=== PATIENT | female | born 1965 | race Caucasian/White ===

== ENCOUNTER 2017-10-21 20:32 | Emergency (ER) | payer OTHER ==
[2017-10-21] MEDS ORDERED: Pepcid 20 MG VIAL IV ONE ×2 (21:36→21:51)
[2017-10-21] MEDS ORDERED: TORAdol 30 mg Injection IV ONE (21:36)
[2017-10-21] MEDS ORDERED: Zofran 4 MG/2 ML VIAL IV ONE (21:36)
[2017-10-21] MEDS ORDERED: Sodium Chloride 0.9% 1000 ML 1,000 ML IV STA (21:36)
--- NOTE | 2017-10-21 21:40 | ERPHSYRPT ---
- History of Present Illness Time Seen by Provider: 10/21/17 21:32 Historian: patient Exam Limitations: no limitations Patient Subjective Stated Complaint: pt states she has beenhaving abd pain for approx 2 weeks. states pain is nincreasing and has new pain in lower back. pt states she has been having diarrhea for 2 weeks also Triage Nursing Assessment: pt alert and oriented, answers questions approp. pt ambulatory with steady gait ntoed, respirations nonlabored with lungs cta. abd soft, pt sttes bloeated. bowel sounds present, hypo. no stool at this time. Physician History: C/o diffuse abdominal pain, cramps, nausea and diarrhea for 2 weeks. She denies bloody or black diarrhea, no fever, chills, other complaints. Timing/Duration: week(s) (2) Quality: cramping Abdominal Pain Onset Location: generalized abdomen Pain Radiation: no radiation Severity of Pain-Max: severe Severity of Pain-Current: severe Modifying Factors: Improves With: nothing Associated Symptoms: diarrhea, loss of appetite, nausea Previous symptoms: no prior history Allergies/Adverse Reactions: No Known Drug Allergies Allergy (Verified 10/21/17 21:37) Home Medications: No Reportable Medications [No Reported Medications] 10/21/17 [History] Hx Tetanus, Diphtheria Vaccination/Date Given: Yes Hx Influenza Vaccination/Date Given: No Hx Pneumococcal Vaccination/Date Given: No Immunizations Up to Date: Yes - Review of Systems Constitutional: No Symptoms Abdominal/Gastrointestinal: Abdominal Pain, Nausea, Diarrhea All Other Systems: Reviewed and Negative - Past Medical History Pertinent Past Medical History: Yes Neurological History: No Pertinent History ENT History: No Pertinent History Cardiac History: High Cholesterol, Hypertension Respiratory History: Pneumonia Endocrine Medical History: No Pertinent History Musculoskeletal History: No Pertinent History GI Medical History: No Pertinent History History: No Pertinent History Psycho-Social History: No Pertinent History Female Reproductive Disorders: No Pertinent History 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 - Past Surgical History Past Surgical History: Yes Neuro Surgical History: No Pertinent History Cardiac: No Pertinent History Respiratory: No Pertinent History Gastrointestinal: Appendectomy, Other Genitourinary: No Pertinent History Musculoskeletal: No Pertinent History Female Surgical History: Section, Tubal Ligation Other Surgical History: BARIATRIC SURGERY - Social History Smoking Status: Current every day smoker How long have you smoked: 20 years Exposure to second hand smoke: Yes Drug Use: none Patient Lives Alone: No - Female History Hx Last Menstrual Period: last week Hx Now: No (irregular) - Nursing Vital Signs Nursing Vital Signs: Initial Vital Signs Temperature 98.4 F 10/21/17 21:23 Pulse Rate 95 H 10/21/17 21:23 Respiratory Rate 20 10/21/17 21:23 Blood Pressure 142/84 10/21/17 21:23 O2 Sat by Pulse Oximetry 98 10/21/17 21:23 Pain Scale Pain Intensity 6 - Physical Exam SpO2: 98 Oxygen Delivery: Room Air - Course Nursing assessment & vital signs reviewed: Yes - CT Exams Abdomen/Pelvis CT Interpretation: Tele-radiologist Report, Other (7.4x6.6 cm well demarcated collection with possibvle peripheral enhancement, located anterior to the rectum , diff; dg: ascess, ovarian cyst or endometrioma.) Ordered Tests: Active Orders 24 hr Category Date Time Status IV Insertion STAT Care 10/21/17 21:36 Active ABDOMEN AND PELVIS W CONTRAST [CT] Stat Exams 10/21/17 21:36 Taken AMYLASE Stat Lab 10/21/17 21:48 Completed CBC W DIFF Stat Lab 10/21/17 21:48 Completed CMP Stat Lab 10/21/17 21:48 Completed CULTURE,URINE Stat Lab 10/21/17 21:49 Received HCG,QUALITATIVE URINE Stat Lab 10/21/17 21:49 Completed LIPASE Stat Lab 10/21/17 21:48 Completed Lactic Acid Stat Lab 10/21/17 21:48 Completed Manual Differential NC Stat Lab 10/21/17 21:48 Completed UA W/ MICROSCOPIC Stat Lab 10/21/17 21:49 Completed Medication Summary Discontinued Medications Generic Name Dose Route Start Last Admin Trade Name Freq PRN Reason Stop Dose Admin Famotidine 20 mg 10/21/17 21:36 10/21/17 21:55 Pepcid 20 Mg Vial IV 10/21/17 21:37 20 mg STAT ONE Administration Famotidine Confirm 10/21/17 21:51 Pepcid 20 Mg Vial Administered 10/21/17 21:52 Dose 20 mg IV .STK-MED ONE Sodium Chloride 1,000 mls @ 999 mls/hr 10/21/17 21:36 10/21/17 21:56 Sodium Chloride 0.9% 1000 Ml IV 10/21/17 22:36 999 mls/hr .Q1H1M STA Administration Sodium Chloride Confirm 10/21/17 21:51 Sodium Chloride 0.9% 1000 Ml Administered 10/21/17 21:52 Dose 1,000 mls @ ud .ROUTE .STK-MED ONE Ceftriaxone Sodium/Dextrose 1 g in 50 mls @ 100 mls/hr 10/22/17 00:44 01:34 Rocephin 1 Gm-D5w 50 Ml Bag IV 10/22/17 01:13 100 ml/hr STAT STA 100 mls/hr Administration Ceftriaxone Sodium/Dextrose Confirm 10/22/17 01:04 Rocephin 1 Gm-D5w 50 Ml Bag Administered 10/22/17 01:05 Dose 1 g in 50 mls @ ud IV .STK-MED ONE Ketorolac Tromethamine 30 mg 10/21/17 21:36 10/21/17 21:56 Toradol 30 Mg Injection IV 10/21/17 21:37 30 mg STAT ONE Administration Ketorolac Tromethamine Confirm 10/21/17 21:50 Toradol 30 Mg Injection Administered 10/21/17 21:51 Dose 30 mg .ROUTE .STK-MED ONE Ondansetron HCl 4 mg 10/21/17 21:36 10/21/17 21:55 Zofran 4 Mg/2 Ml Vial IV 10/21/17 21:37 4 mg STAT ONE Administration Ondansetron HCl Confirm 10/21/17 21:50 Zofran 4 Mg/2 Ml Vial Administered 10/21/17 21:51 Dose 4 mg .ROUTE .STK-MED ONE Lab/Rad Data: Laboratory Result Diagrams 10/21/17 21:48 10/21/17 21:48 Laboratory Results 10/21/17 10/21/17 10/21/17 Range/Units 21:49 21:49 21:48 WBC (4.0-10.5) K/mm3 RBC (4.1-5.4) M/mm3 Hgb (12.0-16.0) gm/dl Hct (35-47) % MCV (78-100) fl MCH (26-32) pg MCHC (32-36) g/dl RDW (11.5-14.0) % Plt Count (150-450) K/mm3 MPV (6-9.5) fl Absolute Granulocytes (1.4-6.9) Segmented Neutrophils (36.0-66.0) % Band Neutrophils (0.0-2.0) % Lymphocytes (Manual) (24-44) % Monocytes (Manual) (0.0-12.0) % Metamyelocytes % Platelet Estimate (NORMAL) RBC Morphology Sodium 140 (137-145) mmol/L Potassium 3.5 (3.5-5.1) mmol/L Chloride 106 (98-107) mmol/L Carbon Dioxide 24 (22-30) mmol/L Anion Gap 13.7 (5-15) MEQ/L BUN 13 (7-17) mg/dL Creatinine 0.68 (0.52-1.04) mg/dL Estimated GFR > 60.0 ML/MIN Glucose 125 H (74-106) mg/dL Lactic Acid (0.4-2.0) Calcium 8.9 (8.4-10.2) mg/dL Total Bilirubin 0.70 (0.2-1.3) mg/dL AST 12 L (14-36) U/L ALT 14 (0-35) U/L Alkaline Phosphatase 151 H (38-126) U/L Serum Total Protein 7.1 (6.3-8.2) g/dL Albumin 3.6 (3.5-5.0) g/dL Amylase < 30 L (30-110) U/L Lipase 30 (23-300) U/L Ur Collection Type VOID Urine Color DARK YELLOW (YELLOW) Urine Appearance CLOUDY (CLEAR) Urine pH 5.0 (5-6) Ur Specific [place] 1.020 (1.005-1.025) Urine Protein 30 (Negative) Urine Ketones SMALL (NEGATIVE) Urine Blood 250 (0-5) Byron/ul Urine Nitrite NEGATIVE (NEGATIVE) Urine Bilirubin ++ (NEGATIVE) Urine Urobilinogen 4 (0-1) mg/dL Ur Leukocyte Esterase 1+ (NEGATIVE) Urine Microscopic RBC 50-100 (0-2) /HPF Urine Microscopic WBC 2-5 (0-5) /HPF Ur Epithelial Cells RARE (FEW) /HPF Urine Bacteria MODERATE (NEGATIVE) /HPF Urine Culture Reflexed YES (NO) Urine Glucose NEGATIVE (NEGATIVE) mg/dL Urine HCG, Qual NEGATIVE (Negative) Specimen Received 10/21 214910/21/1718 Range/Units 21:48 21:48 WBC 19.4 H (4.0-10.5) K/mm3 RBC 4.61 (4.1-5.4) M/mm3 Hgb 11.4 L (12.0-16.0) gm/dl Hct 35.6 (35-47) % MCV 77.2 L (78-100) fl MCH 24.7 L (26-32) pg MCHC 32.0 (32-36) g/dl RDW 18.7 H (11.5-14.0) % Plt Count 332 (150-450) K/mm3 MPV 9.2 (6-9.5) fl Absolute Granulocytes 16.45 H (1.4-6.9) Segmented Neutrophils 86 H (36.0-66.0) % Band Neutrophils 3 H (0.0-2.0) % Lymphocytes (Manual) 4 L (24-44) % Monocytes (Manual) 6 (0.0-12.0) % Metamyelocytes 1 % Platelet Estimate NORMAL (NORMAL) RBC Morphology NORMAL Sodium (137-145) mmol/L Potassium (3.5-5.1) mmol/L Chloride (98-107) mmol/L Carbon Dioxide (22-30) mmol/L Anion Gap (5-15) MEQ/L BUN (7-17) mg/dL Creatinine (0.52-1.04) mg/dL Estimated GFR ML/MIN Glucose (74-106) mg/dL Lactic Acid 0.8 (0.4-2.0) Calcium (8.4-10.2) mg/dL Total Bilirubin (0.2-1.3) mg/dL AST (14-36) U/L ALT (0-35) U/L Alkaline Phosphatase (38-126) U/L Serum Total Protein (6.3-8.2) g/dL Albumin (3.5-5.0) g/dL Amylase (30-110) U/L Lipase (23-300) U/L Ur Collection Type Urine Color (YELLOW) Urine Appearance (CLEAR) Urine pH (5-6) Ur Specific [place] (1.005-1.025) Urine Protein (Negative) Urine Ketones (NEGATIVE) Urine Blood (0-5) Byron/ul Urine Nitrite (NEGATIVE) Urine Bilirubin (NEGATIVE) Urine Urobilinogen (0-1) mg/dL Ur Leukocyte Esterase (NEGATIVE) Urine Microscopic RBC (0-2) /HPF Urine Microscopic WBC (0-5) /HPF Ur Epithelial Cells (FEW) /HPF Urine Bacteria (NEGATIVE) /HPF Urine Culture Reflexed (NO) Urine Glucose (NEGATIVE) mg/dL Urine HCG, Qual (Negative) Specimen Received - Progress Progress: improved Progress Note: 10/22/17 02:[address] Bonilla in [facility] ED in [facility], also Dr Monroe Try On Baster, discussed our findings and this patients current condition, they accepted patient to be transferred there for further exams and treatment. patient and her were informed, they agreed. She has been stable and afebrile, she will be transported in family car. - Departure Time of Disposition: 02:46 Departure Disposition: Transfer ([facility] ED, [facility]) Clinical Impression: Pelvic mass Condition: Stable Critical Care Time: No Referrals: GAMALIEL RUBIO [Primary Care Provider] -
[2017-10-21] MEDS ORDERED: Zofran 4 MG/2 ML VIAL ONE (21:50)
[2017-10-21] MEDS ORDERED: TORAdol 30 mg Injection ONE (21:50)
[2017-10-21] MEDS ORDERED: Sodium Chloride 0.9% 1000 ML 1,000 ML ONE (21:51)
[2017-10-21 21:52] LABS: Granulocyte Absolute (ANC) 16.45 (1.4-6.9); Hematocrit 35.6 % (35-47); Hemoglobin 11.4 gm/dl (12.0-16.0); Mean Cell Volume 77.2 fl (78-100); Mean Corpuscular Hemoglobin 24.7 pg (26-32); Mean Platelet Volume 9.2 fl (6-9.5); Platelet Count 332 K/mm3 (150-450); Red Blood Count 4.61 M/mm3 (4.1-5.4); Red Cell Distribution Width 18.7 % (11.5-14.0); White Blood Count 19.4 K/mm3 (4.0-10.5)
[2017-10-21 22:08] LABS: ALBUMIN 3.6 g/dL (3.5-5.0); ALKALINE PHOSPHATASE 151 U/L (38-126); AMYLASE < 30 U/L (30-110); ANION GAP 13.7 MEQ/L (5-15); BLOOD UREA NITROGEN 13 mg/dL (7-17); CHLORIDE 106 mmol/L (98-107); Calcium 8.9 mg/dL (8.4-10.2); Carbon Dioxide 24 mmol/L (22-30); Creatinine 1 0.68 mg/dL (0.52-1.04); Glucose 125 mg/dL (74-106); LIPASE 30 U/L (23-300); Potassium 3.5 mmol/L (3.5-5.1); SGOT/AST 12 U/L (14-36); SGPT/ALT 14 U/L (0-35); SODIUM 140 mmol/L (137-145); Total Protein 7.1 g/dL (6.3-8.2)
[2017-10-21 22:10] LABS: Appearance CLOUDY (CLEAR)
[2017-10-21 22:11] LABS: Blood 250 Ery/ul (0-5); Glucose NEGATIVE (NEGATIVE); Ketones SMALL (NEGATIVE); Leukocyte Esterase 1+ (NEGATIVE); Nitrite NEGATIVE (NEGATIVE); Protein,Urine Dip 30 (Negative); Urobilinogen 4 mg/dL (0-1)
[2017-10-21 22:12] LABS: Bacteria MODERATE /HPF (NEGATIVE); Epithelial Cells RARE /HPF (FEW); RBC 50-100 /HPF (0-2)
[2017-10-21 22:25] LABS: BAND 3 % (0.0-2.0); Lymphocytes 4 % (24-44); Metamyelocyte 1 %; Monocyte 6 % (0.0-12.0); Neutrophils 86 % (36.0-66.0); Total Cells Counted 100
[2017-10-21 22:26] LABS: Platelet Estimate NORMAL (NORMAL)
[2017-10-22] MEDS ORDERED: ROCEPHIN 1 Gm-D5w 50 ml Bag** 1 G/50 ML IVPB IV STA (00:44)
[2017-10-22] MEDS ORDERED: ROCEPHIN 1 Gm-D5w 50 ml Bag** 1 G/50 ML IVPB IV ONE (01:04)
[2017-10-22 03:09] VITALS: BP 132/64; PULSE 78; O2SAT 97
--- NOTE | 2017-10-22 09:05 | XRAY ---
Indication: Abdomen pain. Elevated WBC. Multiple contiguous axial images obtained through the abdomen and pelvis using 80 cc Isovue 370 contrast only. Comparison: April 07, 2010. Lung bases remain clear. Heart is not enlarged. Noncontrasted stomach and bowel loops appear nonobstructed. Again previous gastric bypass surgery and reported appendectomy. New 7.6 x 6.6 cm pelvic fluid collection with stranding but no air bubbles. Additional smaller cluster of fluid collections in the right adnexa, largest 3.5 cm. Findings presumed inflammatory though infected fluid collection not completely excluded. 1 cm left mid renal cortical cyst. Remaining liver, gallbladder pancreas, spleen, adrenal glands, kidneys, ureters, bladder, and uterus appear unremarkable. Of note, there is no urinary bladder opacification with delayed imaging out to 9 minutes. No pathologic retroperitoneal lymphadenopathy. Osseous structures intact with mild degenerative changes throughout the spine. Impression: 1. New pelvic fluid collections as detailed presumed inflammatory. Partial differential includes complex/hemorrhagic ovary cysts, endometrioma, or abscesses. Pelvic sonogram may yield further information if clinically warranted. 2. Incidental small left renal cyst. Comment: Preliminary interpretation was made by [facility]. No critical discrepancy. CTDI 27.82
== END 2017-10-22 03:00 | disposition short-term general hospital (02) ==
LOC: ED 20:32
DX: R19.00 Intra-abdominal and pelvic swelling, mass and lump, unspecified site (principal); R10.84 Generalized abdominal pain; R11.0 Nausea; R19.7 Diarrhea, unspecified
CPT/HCPCS: 36000; 36415; 74177; 80053; 81000; 82150; 83605; 83690; 84703; 85025; 87086; 96360; 96365; 96374; 96375; 99285; J0696; J1885; J2405

== ENCOUNTER 2020-09-10 17:23 | Emergency (ER) | payer SELFPAY ==
[2020-09-10] MEDS ORDERED: XYLOCAINE HCl Viscous ONE ×3 (18:09→20:59)
[2020-09-10] MEDS ORDERED: Sodium Chloride 0.9% 1000 ML 1,000 ML IV STA (18:28)
[2020-09-10] MEDS ORDERED: MORPHINE SULFATE 2 MG INJ IV ONE (18:28)
[2020-09-10 18:35] LABS: Absolute Neutrophil Ct (ANC) 3.74 (1.4-6.9); BASOPHIL % 0.3 % (0.0-0.4); Basophil (Absolute #) 0.02 (0-0.4); Eosinophil % 3.1 % (0.00-5.0); Eosinophil (Absolute #) 0.23 (0-0.5); Lymphocyte (Absolute #) 2.32 (1.0-4.6); Lymphocytes % 31.3 % (24.0-44.0); Mean Corpuscular Hemoglobin 26.3 pg (26-32); Mean Corpuscular Hgb Concent. 31.7 g/dl (32-36); Mean Platelet Volume 10.6 fl (7.5-11.0); Monocytes % 14.8 % (0.0-12.0); Neutrophil % 50.5 % (36.0-66.0); Platelet Count 230 K/mm3 (150-450); Red Blood Count 4.94 M/mm3 (4.1-5.4); Red Cell Distribution Width 18.3 % (11.5-14.0); White Blood Count 7.4 K/mm3 (4.0-10.5)
[2020-09-10 18:39] LABS: ALBUMIN 4.1 g/dL (3.5-5.0); ALKALINE PHOSPHATASE 170 U/L (38-126); ANION GAP 11.6 MEQ/L (5-15); BLOOD UREA NITROGEN 14 mg/dL (7-17); CHLORIDE 106 mmol/L (98-107); Calcium 9.5 mg/dL (8.4-10.2); Carbon Dioxide 25 mmol/L (22-30); EST GLOMERULAR FILTRATION RATE > 60.0 ML/MIN; Glucose 89 mg/dL (74-106); Potassium 3.8 mmol/L (3.5-5.1); SGOT/AST 56 U/L (14-36); SGPT/ALT 68 U/L (0-35); SODIUM 140 mmol/L (137-145); Total Protein 7.8 g/dL (6.3-8.2)
[2020-09-10] MEDS ORDERED: Sodium Chloride 0.9% 1000 ML 1,000 ML ONE (18:51)
[2020-09-10] MEDS ORDERED: MORPHINE SULFATE 2 MG INJ ONE (18:51)
[2020-09-10] MEDS ORDERED: TORAdol 30 mg Injection IV ONE (19:23)
[2020-09-10] MEDS ORDERED: TORAdol 30 mg Injection ONE (19:37)
--- NOTE | 2020-09-10 20:03 | ERPHSYRPT ---
- History of Present Illness Time Seen by Provider: 09/10/20 17:40 Source: patient Exam Limitations: no limitations Patient Subjective Stated Complaint: Pt states that she has sores in her mouth that she woke up today with and says that they are growing, says that her head is foggy and everything seems delayed, pt got real dizzy and short of breath walking from the waiting room to room 2, pt also states that she has a headache Triage Nursing Assessment: Pt drove herself to the ER, hypertensive, rates pain as 9/10, lethargic, unable to eat due to the pain, pt appears to feel worse when she is up and walking, pulses normal, skin pale, warm and dry Physician History: Patient is a 54-year-old female presents to our ED with hypersensitivity to her oral mucosa. Patient states "it feels like there is glass in my mouth" patient is unable to eat or drink due to pain. Patient states very cold foods like ice cream improve her symptoms. Patient states her thinking feels foggy. Her thinking feels delayed. She feels a little dizzy. Has a mild headache. Symptoms are constant. Symptoms are moderate in intensity. No specific worsening or improving factors. Patient states she is otherwise healthy. She voices no other complaints or concerns at this time. Timing/Duration: today Severity: moderate Modifying Factors: Improves With: nothing (Eating cold foods like ice cream improved symptoms.) Associated Symptoms: denies symptoms Allergies/Adverse Reactions: No Known Drug Allergies Allergy (Verified 09/10/20 17:40) Home Medications: No Reportable Medications [No Reported Medications] 10/21/17 [History] Hx Tetanus, Diphtheria Vaccination/Date Given: Yes Hx Influenza Vaccination/Date Given: No Hx Pneumococcal Vaccination/Date Given: No Travel Risk - International Travel Have you traveled outside of the country in past 3 weeks: No - Coronavirus Screening Are you exhibiting any of the following symptoms?: No Close contact with a COVID-19 positive Pt in past 14-21 Days: No - Vaccine Status Have you recieved a Covid-19 vaccination: No - Review of Systems Constitutional: No Symptoms, No Fever, No Chills Eyes: No Symptoms Ears, Nose, & Throat: No Symptoms Respiratory: No Symptoms, No Cough, No Dyspnea Cardiac: No Symptoms, No Chest Pain, No Edema, No Syncope Abdominal/Gastrointestinal: No Symptoms, No Abdominal Pain, No Nausea, No Vomiting, No Diarrhea Genitourinary Symptoms: No Symptoms, No Dysuria Musculoskeletal: No Symptoms, No Back Pain, No Neck Pain Skin: No Symptoms, No Rash Neurological: No Symptoms, No Dizziness, No Focal Weakness, No Sensory Changes Psychological: No Symptoms Endocrine: No Symptoms Hematologic/Lymphatic: No Symptoms Immunological/Allergic: No Symptoms All Other Systems: Reviewed and Negative - Past Medical History Pertinent Past Medical History: Yes Neurological History: No Pertinent History ENT History: No Pertinent History Cardiac History: High Cholesterol, Hypertension Respiratory History: Pneumonia Endocrine Medical History: No Pertinent History Musculoskeletal History: No Pertinent History GI Medical History: No Pertinent History History: No Pertinent History Psycho-Social History: No Pertinent History Female Reproductive Disorders: No Pertinent History 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 - Past Surgical History Past Surgical History: Yes Neuro Surgical History: No Pertinent History Cardiac: No Pertinent History Respiratory: No Pertinent History Gastrointestinal: Appendectomy, Other Genitourinary: No Pertinent History Musculoskeletal: No Pertinent History Female Surgical History: Section, Tubal Ligation Other Surgical History: BARIATRIC SURGERY - Social History Smoking Status: Current every day smoker How long have you smoked: 20 years Exposure to second hand smoke: Yes Drug Use: none Patient Lives Alone: No - Female History Hx Now: No (tubal) - Nursing Vital Signs Nursing Vital Signs: Initial Vital Signs Temperature 97.9 F 09/10/20 17:31 Pulse Rate 87 09/10/20 17:31 Respiratory Rate 18 09/10/20 17:31 Blood Pressure 176/104 09/10/20 17:31 O2 Sat by Pulse Oximetry 99 09/10/20 17:31 Pain Scale Pain Intensity 0 - Physical Exam General Appearance: no apparent distress, alert Eye Exam: PERRL/EOMI, eyes nml inspection Ears, Nose, Throat Exam: normal ENT inspection, TMs normal, pharynx normal, moist mucous membranes, other (Oral mucosa appears somewhat erythematous. No open or draining lesions. No tongue swelling. No sublingual lesions. Patient's pain is along the mucosal lining of the cheeks and lower lip. Including the hard palate. No trismus. No hoarse voice.) Neck Exam: normal inspection, non-tender, supple, full range of motion Respiratory Exam: normal breath sounds, lungs clear, No respiratory distress Cardiovascular Exam: regular rate/rhythm, normal heart sounds, normal peripheral pulses Gastrointestinal/Abdomen Exam: soft, normal bowel sounds, No tenderness, No mass Back Exam: normal inspection, normal range of motion, No CVA tenderness, No vertebral tenderness Extremity Exam: normal inspection, normal range of motion, pelvis stable Neurologic Exam: alert, oriented x 3, cooperative, normal mood/affect, nml cerebellar function, nml station & gait, sensation nml, No motor deficits Skin Exam: normal color, warm, dry, No rash Lymphatic Exam: No adenopathy SpO2 Interpretation: normal SpO2: 97 O2 Delivery: Room Air - Course Nursing assessment & vital signs reviewed: Yes EKG Interpreted by Me: RATE (75), Sinus Rhythm, NORMAL AXIS, NORMAL INTERVALS Ordered Tests: Active Orders 24 hr Category Date Time Status CBC W DIFF Stat Lab 09/10/20 17:42 Completed CMP Stat Lab 09/10/20 17:42 Completed TROPONIN Q3H Lab 09/10/20 17:42 Completed TROPONIN Q3H Lab 09/10/20 23:15 Ordered TROPONIN Q3H Lab 09/11/20 02:15 Ordered TROPONIN Q3H Lab 09/11/20 05:15 Ordered TROPONIN Q3H Lab 09/11/20 08:15 Ordered UA W/RFX UR CULTURE Stat Lab 09/10/20 18:28 Ordered Medication Summary Discontinued Medications Generic Name Dose Route Start Last Admin Trade Name eMdardoq PRN Reason Stop Dose Admin Hydroxyzine HCl 25 mg 09/10/20 20:14 09/10/20 20:42 Atarax 25 Mg PO 09/10/20 20:15 Not Given STAT ONE Hydroxyzine HCl Confirm 09/10/20 20:34 Atarax 25 Mg Administered 09/10/20 20:35 Dose 25 mg .ROUTE .STK-MED ONE Sodium Chloride 1,000 mls @ 999 mls/hr 09/10/20 18:28 09/10/20 20:01 Sodium Chloride 0.9% 1000 Ml IV 09/10/20 19:28 Infused .Q1H1M STA Infusion Sodium Chloride Confirm 09/10/20 18:51 Sodium Chloride 0.9% 1000 Ml Administered 09/10/20 18:52 Dose 1,000 mls @ ud .ROUTE .STK-MED ONE Ketorolac Tromethamine 30 mg 09/10/20 19:23 09/10/20 19:40 Toradol 30 Mg Injection IV 09/10/20 19:24 30 mg STAT ONE Administration Ketorolac Tromethamine Confirm 09/10/20 19:37 Toradol 30 Mg Injection Administered 09/10/20 19:38 Dose 30 mg .ROUTE .STK-MED ONE Lidocaine HCl Confirm 09/10/20 18:09 Xylocaine Hcl Viscous * Administered 09/10/20 18:10 Dose 5 ml .ROUTE .STK-MED ONE Lidocaine HCl 5 ml 09/10/20 20:48 09/10/20 20:50 Xylocaine Viscous 2% 20 Ml Cup PO 09/10/20 20:49 Not Given STAT ONE Lidocaine HCl 5 ml 09/10/20 20:50 09/10/20 20:53 Xylocaine Viscous 2% 20 Ml Cup PO 09/10/20 20:51 5 ml STAT ONE Administration Lidocaine HCl Confirm 09/10/20 20:50 Xylocaine Hcl Viscous * Administered 09/10/20 20:51 Dose 5 ml .ROUTE .STK-MED ONE Morphine Sulfate 2 mg 09/10/20 18:28 09/10/20 18:56 Morphine Sulfate 2 Mg Inj IV 09/10/20 18:29 Not Given STAT ONE Morphine Sulfate Confirm 09/10/20 18:51 Morphine Sulfate 2 Mg Inj Administered 09/10/20 18:52 Dose 2 mg .ROUTE .STK-MED ONE Lab/Rad Data: Laboratory Result Diagrams 09/10/20 17:42 09/10/20 17:42 Laboratory Results 09/10/20 09/10/20 09/10/20 Range/Units 17:42 17:42 17:42 WBC 7.4 (4.0-10.5) K/mm3 RBC 4.94 (4.1-5.4) M/mm3 Hgb 13.0 (12.0-16.0) gm/dl Hct 41.0 (35-47) % MCV 83.0 (78-100) fl MCH 26.3 (26-32) pg MCHC 31.7 L (32-36) g/dl RDW 18.3 H (11.5-14.0) % Plt Count 230 (150-450) K/mm3 MPV 10.6 (7.5-11.0) fl Gran % 50.5 (36.0-66.0) % Eos # (Auto) 0.23 (0-0.5) Absolute Lymphs (auto) 2.32 (1.0-4.6) Absolute Monos (auto) 1.10 (0.0-1.3) Lymphocytes % 31.3 (24.0-44.0) % Monocytes % 14.8 H (0.0-12.0) % Eosinophils % 3.1 (0.00-5.0) % Basophils % 0.3 (0.0-0.4) % Absolute Granulocytes 3.74 (1.4-6.9) Basophils # 0.02 (0-0.4) Sodium 140 (137-145) mmol/L Potassium 3.8 (3.5-5.1) mmol/L Chloride 106 (98-107) mmol/L Carbon Dioxide 25 (22-30) mmol/L Anion Gap 11.6 (5-15) MEQ/L BUN 14 (7-17) mg/dL Creatinine 0.70 (0.52-1.04) mg/dL Estimated GFR > 60.0 ML/MIN Glucose 89 (74-106) mg/dL Calcium 9.5 (8.4-10.2) mg/dL Total Bilirubin 0.30 (0.2-1.3) mg/dL AST 56 H (14-36) U/L ALT 68 H (0-35) U/L Alkaline Phosphatase 170 H (38-126) U/L Troponin I < 0.012 (0.000-0.034) ng/mL Serum Total Protein 7.8 (6.3-8.2) g/dL Albumin 4.1 (3.5-5.0) g/dL - Progress Progress: improved Progress Note: Patient reassessed. She feels well. Patient ready for discharge. Will discharge home at this time. Patient received a prescription for viscous lidocaine 5 cc swish and spit 3 times a day for 3 days. No refills. Patient agrees to follow-up with her primary care doctor within 48 hours for reevaluation. 09/10/20 21:01 Counseled pt/family regarding: lab results, diagnosis, need for follow-up - Departure Departure Disposition: Home Clinical Impression: Mucositis, Mouth pain Condition: Stable Critical Care Time: No Referrals: GAMALIEL RUBIO [Primary Care Provider] - Instructions: Mouth Sores Additional Instructions: Discharge/Care Plan CHERI METZ was seen on 09/10/20 in the Emergency Room. The patient was counseled regarding Diagnosis,Lab results, Imaging studies, need for follow up and when to return to the Emergency Room. Prescriptions given: Discharge Note I have spoken with the patient and/or caregivers. I have explained the patient's condition, diagnosis and treatment plan based on the information available to me at this time. I have answered the patient's and/or caregiver's questions and addressed any concerns. The patient and/or caregivers have as good understanding of the patient's diagnosis, condition and treatment plan as can be expected at this point. The vital signs have been stable. The patient's condition is stable and appropriate for discharge from the emergency department. The patient will pursue further outpatient evaluation with the primary care physician or other designated or consulting physician as outlined in the discharge instructions. The patient and/or caregivers are agreeable to this plan of care and follow-up instructions have been explained in detail. The patient and/or caregivers have received these instruction. The patient/and or caregivers are aware that any significant change in condition or worsening of symptoms should prompt an immediate return to this or the closest emergency department or call 911.
[2020-09-10] MEDS ORDERED: ATARAX 25 MG PO ONE (20:14)
[2020-09-10] MEDS ORDERED: ATARAX 25 MG ONE (20:34)
[2020-09-10] MEDS ORDERED: XYLOCAINE VISCOUS 2% 20 ML CUP PO ONE ×2 (20:48→20:50)
[2020-09-10 20:58] VITALS: BP 152/88; PULSE 96
[2020-09-10 21:03] VITALS: O2SAT 97
== END 2020-09-10 21:04 | disposition home or self-care (01) ==
LOC: ED 17:23
DX: K13.79 Other lesions of oral mucosa (principal); I10 Essential (primary) hypertension
CPT/HCPCS: 36000; 36415; 80053; 84484; 85025; 93005; 96360; 96374; 96375; 99284; J1885; J2270; A9270-GY

== ENCOUNTER 2021-12-06 12:51 | Emergency (ER) | payer SELFPAY ==
[2021-12-06 13:03] VITALS: BP 177/86; PULSE 69; O2SAT 96
[2021-12-06] MEDS ORDERED: XYLOCAINE 1% HCL 20 ML MDV ONE (13:04)
[2021-12-06] MEDS ORDERED: XYLOCAINE 1% HCL 20 ML MDV IJ ONE (13:06)
--- NOTE | 2021-12-06 13:22 | ERPHSYRPT ---
- History of Present Illness Time Seen by Provider: 12/06/21 12:55 Source: patient Exam Limitations: no limitations Patient Subjective Stated Complaint: Laceration Triage Nursing Assessment: Patient ambulated back to ED and transferred self to bed. Patient A+O X 3. Patient's skin pink, warm and dry. Patient complain of laceration to right hand lower posterior thumb. 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 Patient complains of pain 4/10. 2cm laceration noted to right hand lower posterior thumb. 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 There was bleeding initially but stopped with applying pressure. She is able to move her thumb in all direction without any limitation. No limitation range of motion of fingers. No numbness or tingling at the thumb/fingers. No injury anywhere else. Up-to-date with tetanus. Timing/Duration: hour(s) (0.5), sudden Quality: painful Severity: mild, moderate Location: hands Possible Causes: other Associated Symptoms: denies symptoms Allergies/Adverse Reactions: No Known Drug Allergies Allergy (Verified 12/06/21 12:57) Home Medications: No Reportable Medications [No Reported Medications] 10/21/17 [History] Hx Tetanus, Diphtheria Vaccination/Date Given: Yes Hx Influenza Vaccination/Date Given: No Hx Pneumococcal Vaccination/Date Given: No Travel Risk - International Travel Have you traveled outside of the country in past 3 weeks: No - Coronavirus Screening Are you exhibiting any of the following symptoms?: No Close contact with a COVID-19 positive Pt in past 14-21 Days: No - Vaccine Status Have you recieved a Covid-19 vaccination: No - Review of Systems Constitutional: No Symptoms Ears, Nose, & Throat: No Symptoms Respiratory: No Symptoms Cardiac: No Symptoms Abdominal/Gastrointestinal: No Symptoms Genitourinary Symptoms: No Symptoms Musculoskeletal: Injury Skin: Skin Lesions Neurological: No Symptoms Psychological: No Symptoms Endocrine: No Symptoms Hematologic/Lymphatic: No Symptoms Immunological/Allergic: No Symptoms - Past Medical History Pertinent Past Medical History: Yes Neurological History: No Pertinent History ENT History: No Pertinent History Cardiac History: High Cholesterol, Hypertension Respiratory History: Pneumonia Endocrine Medical History: No Pertinent History Musculoskeletal History: No Pertinent History GI Medical History: No Pertinent History History: No Pertinent History Psycho-Social History: No Pertinent History Female Reproductive Disorders: No Pertinent History 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 - Past Surgical History Past Surgical History: Yes Neuro Surgical History: No Pertinent History Cardiac: No Pertinent History Respiratory: No Pertinent History Gastrointestinal: Appendectomy, Other Genitourinary: No Pertinent History Musculoskeletal: No Pertinent History Female Surgical History: Section, Tubal Ligation Other Surgical History: BARIATRIC SURGERY - Social History Smoking Status: Current every day smoker How long have you smoked: 20 years Exposure to second hand smoke: Yes Drug Use: none Patient Lives Alone: No - Nursing Vital Signs Nursing Vital Signs: Initial Vital Signs Temperature 97.3 F 12/06/21 12:57 Pulse Rate 69 12/06/21 12:57 Respiratory Rate 18 12/06/21 12:57 Blood Pressure 177/86 12/06/21 12:57 O2 Sat by Pulse Oximetry 96 12/06/21 12:57 Pain Scale Pain Intensity 4 - Physical Exam General Appearance: no apparent distress, alert Eye Exam: PERRL/EOMI Neck Exam: normal inspection, full range of motion Respiratory Exam: normal breath sounds, lungs clear Cardiovascular Exam: regular rate/rhythm, normal heart sounds Extremity Exam: lacerations (2 cm laceration right thenar eminence with minimal oozing. Tenderness. Intact range of motion at thumb/fingers. Distal neurovascular well intact.), tenderness Neurologic Exam: alert, oriented x 3, cooperative, sensation nml, No motor deficits, No sensory deficit Skin Exam: normal color SpO2 Interpretation: normal SpO2: 96 O2 Delivery: Room Air Procedures - Laceration/Wound Repair Right Hand Time of Procedure: 13:00 Wound Location: Right Wound Length (cm): 2 Wound's Depth, Shape: superficial, into muscle, linear Wound Explored: clean Irrigated: Yes Hibiclens Prep: Yes Anesthesia: 1% Lidocaine Volume Anesthetic (ccs): 5 Wound Repaired With: sutures Suture Size/Type: 4-0, prolene Number of Sutures: 5 Layer Closure?: No Sterile Dressing Applied?: Yes Ordered Tests: Medication Summary Discontinued Medications Generic Name Dose Route Start Last Admin Trade Name Freq PRN Reason Stop Dose Admin Lidocaine HCl Confirm 12/06/21 13:04 Lidocaine Hcl 1% 20 Ml Mdv 20 Ml Ml Administered 12/06/21 13:05 Dose 5 ml .ROUTE .STK-MED ONE Lidocaine HCl 5 ml 12/06/21 13:06 12/06/21 13:07 Lidocaine Hcl 1% 20 Ml Mdv 20 Ml Ml IJ 12/06/21 13:07 5 ml STAT ONE Administration - Progress Progress: improved Progress Note: 12/06/21 13:21 She has intact distal neurovascular. Laceration is repaired. Outpatient follow-up recommended. Do not think needs antibiotics, recommended taking Tylenol do not discuss signs symptoms of infection needing return to ER which she seems understanding. Counseled pt/family regarding: diagnosis, need for follow-up - Departure Departure Disposition: Home Clinical Impression: Hand laceration Condition: Stable Critical Care Time: No Referrals: GAMALIEL RUBIO [Primary Care Provider] - Follow up/PCP as directed (2 - 3 days for reevaluation) Instructions: Laceration Repair With Stitches (DC) Additional Instructions: Take Tylenol as needed for pain. Intermittent ice application. Keep it elevated. Avoid exertional activities with right hand. Follow-up with primary care for reevaluation in 2 to 3 days. Suture removal in 10 to 14 days. Return to ER for increasing swelling redness discharge, difficulty movements of thumb/fingers, fever chills etc.
== END 2021-12-06 13:30 | disposition home or self-care (01) ==
LOC: ED 12:51
DX: S61.411A Laceration without foreign body of right hand, initial encounter (principal); W29.0XXA Contact with powered kitchen appliance, initial encounter; Y93.G1 Activity, food preparation and clean up; E78.5 Hyperlipidemia, unspecified; I10 Essential (primary) hypertension; Z72.0 Tobacco use; Z28.310 Unvaccinated for COVID-19
CPT/HCPCS: 12001; 96372; 99283

== ENCOUNTER 2023-10-19 18:30 | Emergency (ER) | payer SELFPAY ==
[2023-10-19 18:53] VITALS: BP 205/100; PULSE 104; TEMP 98.8; O2SAT 97
--- NOTE | 2023-10-19 19:05 | ERPHSYRPT ---
- History of Present Illness Time Seen by Provider: 10/19/23 18:50 Source: patient Patient Subjective Stated Complaint: Pt got a possible spider bite on September 12 and the bite has gotten bigger and has a large hole in the middle Triage Nursing Assessment: Pt brought self to the ER, tachycardic, hypertensive, rates pain as 01/16, pt unsure of what she was bitten by, pt had 2 small holes and redness around it and then after a couple of days it scabed over and then about a week later the scab fell off and it has been getting larger and has a lot of pain from it, marked the area with a skin marker, pt states that she has felt bad all day Timing/Duration: week(s) (3 weeks ago ) Severity: mild (patient states that she got bit 3 weeks ago and then started draining some purulent material a few days ago ) Allergies/Adverse Reactions: Corticosteroids (Glucocorticoids) Allergy (Verified 10/19/23 18:53) Hx Tetanus, Diphtheria Vaccination/Date Given: Yes Hx Influenza Vaccination/Date Given: No Hx Pneumococcal Vaccination/Date Given: No Travel Risk - International Travel Have you traveled outside of the country in past 3 weeks: No - Emerging Infectious Disease Are you exhibiting symptoms associated with any current EIDs: No - Past Medical History Pertinent Past Medical History: Yes Neurological History: No Pertinent History ENT History: No Pertinent History Cardiac History: High Cholesterol, Hypertension Respiratory History: Pneumonia Endocrine Medical History: No Pertinent History Musculoskeletal History: No Pertinent History GI Medical History: No Pertinent History History: No Pertinent History Psycho-Social History: No Pertinent History Female Reproductive Disorders: No Pertinent History 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 - Past Surgical History Past Surgical History: Yes Neuro Surgical History: No Pertinent History Cardiac: No Pertinent History Respiratory: No Pertinent History Gastrointestinal: Appendectomy, Other Genitourinary: No Pertinent History Musculoskeletal: No Pertinent History Female Surgical History: Section, Tubal Ligation Other Surgical History: BARIATRIC SURGERY - Social History Smoking Status: Current every day smoker How long have you smoked: 20 years Exposure to second hand smoke: Yes Drug Use: none Patient Lives Alone: No - Social Determinants of Health Will the patient participate in the screening: Yes Do you worry about a steady place to live?: No Do you have any problems with any of the following?: No known problems In the past 12 months,have you had to go without utilities?: No Transportation Issues: No Has anyone in your support network made you feel unsafe?: No Have you or anyone in your house had to go without enough: No - Nursing Vital Signs Nursing Vital Signs: Initial Vital Signs Temperature 98.8 F 10/19/23 18:37 Pulse Rate 104 H 10/19/23 18:37 Blood Pressure 205/100 10/19/23 18:37 O2 Sat by Pulse Oximetry 97 10/19/23 18:37 Pain Scale Pain Intensity 9 - Physical Exam General Appearance: no apparent distress Eye Exam: PERRL/EOMI Ears, Nose, Throat Exam: normal ENT inspection Neck Exam: normal inspection Respiratory Exam: normal breath sounds Cardiovascular Exam: regular rate/rhythm Gastrointestinal/Abdomen Exam: soft, normal bowel sounds Skin Exam: other (there is an insect bite with some breakdown of the skin above the left lateral ankle there is no active drainage or induration , patient is neurovascularly intact distally) SpO2: 97 Ordered Tests: Medication Summary Discontinued Medications Generic Name Dose Route Start Last Admin Trade Name [place] PRN Reason Stop Dose Admin Ceftriaxone Sodium 1,000 mg 10/19/23 19:03 10/19/23 19:11 Ceftriaxone Sodium 1000 Mg Inj Vial IM 10/19/23 19:04 1,000 mg STAT ONE Administration Ceftriaxone Sodium Confirm 10/19/23 19:08 Ceftriaxone Sodium 1000 Mg Inj Vial Administered 10/19/23 19:09 Dose 1,000 mg .ROUTE .STK-MED ONE Lidocaine HCl Confirm 10/19/23 19:08 Lidocaine Hcl 1% 20 Ml Mdv 20 Ml Ml Administered 10/19/23 19:09 Dose 3 ml .ROUTE .STK-MED ONE - Progress Progress Note: patient was given wound care precautions and informed of the need for follow-up with her primary care provider she will be discharged home with Keflex she is to apply Neosporin and nonadherent dressing to the wound 10/19/23 19:14 Medical Desision Making - Discussion of managment Agreed on:: need for follow-up - Departure Clinical Impression: Insect bite Condition: Stable Critical Care Time: No Referrals: GAMALIEL RUBIO [Primary Care Provider] - Follow up/PCP as directed Prescriptions: Cephalexin Mh 500 mg [Keflex 500 mg] 500 mg PO Q6H #28 cap
[2023-10-19] MEDS ORDERED: XYLOCAINE 1% HCL 20 ML MDV ONE (19:08)
[2023-10-19] MEDS ORDERED: Rocephin 1000 MG INJ ONE (19:08)
[2023-10-19] MEDS: Rocephin 1000 MG INJ IM ONE (19:11)
== END 2023-10-19 19:28 | disposition home or self-care (01) ==
LOC: ED 18:30
DX: S90.562A Insect bite (nonvenomous), left ankle, initial encounter (principal); E78.5 Hyperlipidemia, unspecified; I10 Essential (primary) hypertension; Z72.0 Tobacco use
CPT/HCPCS: 96372; 99282; J0696

== ENCOUNTER 2024-03-02 19:04 | Emergency (ER) | payer SELFPAY ==
[2024-03-02] MEDS ORDERED: XYLOCAINE 1% HCL 20 ML MDV IJ ONE (19:05)
--- NOTE | 2024-03-02 19:06 | ERPHSYRPT ---
- History of Present Illness Time Seen by Provider: 03/02/24 19:06 Source: patient, family Exam Limitations: no limitations Physician History: This is a morbidly obese 58-year-old white female patient who arrives by private vehicle and has a history of MRSA in the past. She was diagnosed in September 2023 and was treated with antibiotics and they resolved. In the last 3 weeks she has had multiple skin lesions on her body opened up in a similar way. Patient has a history of of hypertension and hyperlipidemia. She is currently working on obtaining a follow-up appointment with a primary care provider on an outpatient basis out of the [facility]. Patient has not had a fever. Timing/Duration: week(s) (3) Quality: burning Severity: mild Location: torso, extremities Possible Causes: other (Possible MRSA) Associated Symptoms: swelling/mass/lumps Allergies/Adverse Reactions: Corticosteroids (Glucocorticoids) Allergy (Verified 03/02/24 21:11) Hx Tetanus, Diphtheria Vaccination/Date Given: Yes Hx Influenza Vaccination/Date Given: No Hx Pneumococcal Vaccination/Date Given: No Travel Risk - Emerging Infectious Disease Are you exhibiting symptoms associated with any current EIDs: No - Review of Systems Constitutional: No Symptoms Eyes: No Symptoms Ears, Nose, & Throat: No Symptoms Respiratory: No Symptoms Cardiac: No Symptoms Abdominal/Gastrointestinal: No Symptoms Genitourinary Symptoms: No Symptoms Musculoskeletal: No Symptoms Skin: Skin Lesions (Tender raised draining red multiple sites) Neurological: No Symptoms Psychological: No Symptoms Endocrine: No Symptoms Hematologic/Lymphatic: No Symptoms Immunological/Allergic: No Symptoms All Other Systems: Reviewed and Negative - Past Medical History Pertinent Past Medical History: Yes Neurological History: No Pertinent History ENT History: No Pertinent History Cardiac History: High Cholesterol, Hypertension Respiratory History: Pneumonia Endocrine Medical History: No Pertinent History Musculoskeletal History: No Pertinent History GI Medical History: No Pertinent History History: No Pertinent History Psycho-Social History: No Pertinent History Female Reproductive Disorders: No Pertinent History 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 - Past Surgical History Past Surgical History: Yes Neuro Surgical History: No Pertinent History Cardiac: No Pertinent History Respiratory: No Pertinent History Gastrointestinal: Appendectomy, Other Genitourinary: No Pertinent History Musculoskeletal: No Pertinent History Female Surgical History: Section, Tubal Ligation Other Surgical History: BARIATRIC SURGERY - Social History Smoking Status: Current every day smoker How long have you smoked: 20 years Exposure to second hand smoke: Yes Drug Use: none Patient Lives Alone: No - Social Determinants of Health Will the patient participate in the screening: Yes Do you worry about a steady place to live?: No In the past 12 months,have you had to go without utilities?: No Transportation Issues: No Has anyone in your support network made you feel unsafe?: No Have you or anyone in your house had to go without enough: No - Nursing Vital Signs Nursing Vital Signs: Initial Vital Signs Blood Pressure 179/99 03/02/24 20:54 O2 Sat by Pulse Oximetry 97 03/02/24 20:54 Pain Scale Pain Intensity 2 - Physical Exam General Appearance: no apparent distress, alert, anxiety, obese Eye Exam: PERRL/EOMI, eyes nml inspection Ears, Nose, Throat Exam: normal ENT inspection, moist mucous membranes Neck Exam: normal inspection, non-tender, supple, full range of motion Respiratory Exam: airway intact, No chest tenderness, No respiratory distress Gastrointestinal/Abdomen Exam: No tenderness Pelvic Exam: not done Rectal Exam: not done Back Exam: normal inspection, normal range of motion, No CVA tenderness, No vertebral tenderness Extremity Exam: tenderness (Skin lesions present left lower extremity consistent with MRSA lesions) Skin Exam: other ( multiple, tender skin lesions that are red, raised and some are draining in multiple areas of her body consistent with MRSA) Lymphatic Exam: No adenopathy SpO2 Interpretation: normal O2 Delivery: Room Air - Course Nursing assessment & vital signs reviewed: Yes Ordered Tests: Active Orders 24 hr Category Date Time Status CULTURE,URINE Stat Lab 03/02/24 21:10 Received CULTURE,WOUND Stat Lab 03/02/24 21:16 Received UA W/RFX UR CULTURE Stat Lab 03/02/24 21:10 Completed Medication Summary Discontinued Medications Generic Name Dose Route Start Last Admin Trade Name Freq PRN Reason Stop Dose Admin Ceftriaxone Sodium 1,000 mg 03/02/24 21:40 03/02/24 21:47 Ceftriaxone Sodium 1000 Mg Inj Vial IM 03/02/24 21:41 1,000 mg STAT ONE Administration Ceftriaxone Sodium Confirm 03/02/24 21:44 Ceftriaxone Sodium 1000 Mg Inj Vial Administered 03/02/24 21:45 Dose 1,000 mg .ROUTE .STK-MED ONE Trimethoprim/Sulfamethoxazole 1 tab 03/02/24 21:40 03/02/24 21:47 Smz/Tmp Ds Tablet 1 Tablet PO 03/02/24 21:41 1 tab STAT ONE Administration Trimethoprim/Sulfamethoxazole Confirm 03/02/24 21:44 Smz/Tmp Ds Tablet 1 Tablet Administered 03/02/24 21:45 Dose 1 tab PO .STK-MED ONE Lab/Rad Data: Laboratory Results 03/02/24 Range/Units 21:10 Urine Color Dark Yellow A (Yellow) Urine Appearance Turbid A (Clear) Urine pH 5.0 (4.6-8.0) Ur Specific [place] >=1.030 A (1.005-1.030) Urine Protein 100 A (Negative) Urine Glucose (UA) 500 A (Negative) mg/dL Urine Ketones Trace A (Negative) Urine Blood Trace (Negative) Urine Nitrite Positive A (Negative) Urine Bilirubin Small A (Negative) Urine Urobilinogen 1.0 A (0.2) mg/dL Ur Leukocyte Esterase Trace A (Negative) U Hyaline Cast (Auto) 11-20 (0-2) /LPF Urine Microscopic RBC 6-10 A (0-5) /HPF Urine Microscopic WBC 21-50 A (0-5) /HPF Ur Epithelial Cells Moderate A (None Seen) /HPF Urine Bacteria Moderate A (None Seen) /HPF Urine Culture Reflexed YES (NO) - Progress Progress: unchanged Progress Note: 03/02/24 22:18 My medical decision making and the assignment of low complexity to this patient's medical issue today is based on review of the patient's past medical history, review of the patient's medication list, reviewed patient drug allergy list, history present illness and physical findings on examination. The workup in this patient includes wound culture of left lateral breast draining wound. Differential diagnosis includes but is not limited to staph aureus wound infection, MRSA infection Counseled pt/family regarding: diagnosis, need for follow-up Medical Desision Making - Independent Historian Additional History obtained from: Family - Diagnostic Testing Diagnostic test were ordered, analyzed, and reviewed by me: Yes - Risk of complications The pt has a mod risk of morbidity or mortality based on: Need for prescription drug management - Departure Departure Disposition: Home Clinical Impression: MRSA cellulitis Condition: Stable Critical Care Time: No Referrals: GAMALIEL RUBIO [Primary Care Provider] - Follow up/PCP as directed Additional Instructions: Keep all the skin lesions sites clean daily with soap and water and may also wash with Hibiclens. Cover the sites. Avoid exposure with other individuals. Take your antibiotics as prescribed. Follow-up with your primary care provider as an outpatient. Use Tylenol and ibuprofen for pain control. Prescriptions: Smz/Tmp Ds Tablet [Bactrim Ds Tablet] 1 udtab PO BID #20 tablet
[2024-03-02 20:56] VITALS: PULSE 80; RESP 18; TEMP 98
[2024-03-02 21:23] VITALS: BP 150/93; O2SAT 97
[2024-03-02 21:34] LABS: Appearance Turbid (Clear); Bacteria Moderate /HPF (None Seen); Bilirubin Small (Negative); Blood Trace (Negative); Epithelial Cells Moderate /HPF (None Seen); Glucose, Urine 500 mg/dL (Negative); Ketones Trace (Negative); Leukocyte Esterase Trace (Negative); Nitrite Positive (Negative); Protein,Urine Dip 100 (Negative); Specific Gravity >=1.030 (1.005-1.030); WBC 21-50 /HPF (0-5)
[2024-03-02] MEDS ORDERED: Rocephin 1000 MG INJ ONE (21:44)
[2024-03-02] MEDS ORDERED: BACTRIM DS TABLET PO ONE (21:44)
[2024-03-02] MEDS: BACTRIM DS TABLET PO ONE (21:47)
[2024-03-02] MEDS: Rocephin 1000 MG INJ IM ONE (21:47)
== END 2024-03-02 22:27 | disposition home or self-care (01) ==
LOC: ED 19:04
DX: L03.116 Cellulitis of left lower limb (principal); L03.90 Cellulitis, unspecified; B95.62 Methicillin resistant Staphylococcus aureus infection as the cause of diseases classified elsewhere; E78.5 Hyperlipidemia, unspecified; I10 Essential (primary) hypertension; Z72.0 Tobacco use
CPT/HCPCS: 81001; 87070; 87077; 87086; 87186; 96372; 99283; J0696; A9270-GY